=== PATIENT | male | born 1965 | race Caucasian/White ===

== ENCOUNTER 2016-09-02 17:15 | Emergency (ER) | payer MEDICAID ==
[~2016-09-02] VITALS: Ht 188 cm; Wt 96.1 kg
[~2016-09-02 17:15] MED LIST: ACET325T14 PO; CLIN300C93 PO; LACT1CAP24 PO; WELLBUTRIN
[2016-09-02] MEDS ORDERED: SODIUM CHLORIDE 0.9% 1,000 ML IV ONE (17:48)
[2016-09-02] MEDS ORDERED: SODIUM CHLORIDE 0.9% 1,000ML IVBOLUS ONE (18:00)
[2016-09-02] MEDS ORDERED: ONDANSETRON 2MG/ML, 2ML IVPush ONE (18:00)
[2016-09-02] MEDS ORDERED: MORPHINE SULFATE 4 MG/ML, 1ML IVPush PRN (18:00)
[2016-09-02 18:24] LABS: BLOOD UREA NITROGEN 13 mg/dL (7-18)
[2016-09-02] MEDS ORDERED: MORPHINE SULFATE 4 MG/ML, 1ML ONE (19:12)
[2016-09-02] MEDS ORDERED: ONDANSETRON 2MG/ML, 2ML ONE (19:12)
[2016-09-02] MEDS ORDERED: CEFTAROLINE 600 MG in SODIUM CHLORIDE 0.9% 100 ML IV ONE (20:00)
[2016-09-02 23:06] VITALS: BP 119/79
== END 2016-09-02 23:27 | disposition home or self-care (01) ==
LOC: ED 20:29
DX: L03.115 Cellulitis of right lower limb (principal); I10 Essential (primary) hypertension; F17.200 Nicotine dependence, unspecified, uncomplicated; F15.10 Other stimulant abuse, uncomplicated
CPT/HCPCS: 36415; 80048; 82040; 83605; 84145; 85025; 87040; 93971; 96361; 96365; 96366; 96375; 99285; J0712; J2405; J7030

== ENCOUNTER 2016-09-07 19:11 | Emergency (ER) | payer MEDICAID ==
[~2016-09-07] VITALS: Ht 188 cm; Wt 93.9 kg
[2016-09-07] MEDS ORDERED: CEFTRIAXONE 1,000 MG in SODIUM CHLORIDE 0.9% 50 ML IVPB ONE (20:00)
[2016-09-07] MEDS ORDERED: SODIUM CHLORIDE FLUSH 10ML SYR IVF ONE (20:00)
[2016-09-07 20:19] LABS: BLOOD UREA NITROGEN 28 mg/dL (7-18)
[2016-09-07 20:47] VITALS: BP 133/90
== END 2016-09-07 20:56 | disposition home or self-care (01) ==
LOC: ED 20:53
DX: L03.115 Cellulitis of right lower limb (principal); I10 Essential (primary) hypertension; F17.210 Nicotine dependence, cigarettes, uncomplicated
CPT/HCPCS: 36415; 80048; 82040; 85025; 96365; 99284; J0696

== ENCOUNTER 2016-11-17 13:31 | Inpatient (IN) | payer MEDICAID ==
[~2016-11-17] VITALS: Ht 188 cm; Wt 97.0 kg
[2016-11-17] MEDS ORDERED: MORPHINE SULFATE 4 MG/ML, 1ML IVPush PRN ×2 (14:00→18:30)
[2016-11-17] MEDS ORDERED: SODIUM CHLORIDE 0.9% 1,000ML IVBOLUS ONE (14:00)
[2016-11-17] MEDS ORDERED: ONDANSETRON 2MG/ML, 2ML IVPush ONE (14:00)
[2016-11-17 14:56] LABS: HEMATOCRIT 42.6 % (39.2-51.8); HEMOGLOBIN 14.4 g/dL (13.7-18.0); WHITE BLOOD COUNT 9.8 x10^3/uL (3.4-10)
[2016-11-17 14:59] LABS: ASPARTATE AMINO TRANSFERASE 12 U/L (15-37); BLOOD UREA NITROGEN 20 mg/dL (7-18)
[2016-11-17] MEDS ORDERED: SODIUM CHLORIDE 0.9% 1,000 ML IV ONE (18:23)
[2016-11-17] MEDS ORDERED: CEFTAROLINE 600 MG in SODIUM CHLORIDE 0.9% 100 ML IV ONE (18:30)
[2016-11-17] MEDS ORDERED: ONDANSETRON 2MG/ML, 2ML IVPush PRN ×2 (18:30→19:00)
[2016-11-17] MEDS ORDERED: MORPHINE SULFATE 4 MG/ML, 1ML ONE (18:38)
[2016-11-17] MEDS ORDERED: ONDANSETRON 2MG/ML, 2ML ONE (18:39)
[2016-11-17] MEDS ORDERED: morphine SULFATE 10 MG/ML, 1ML IVPush PRN (19:00)
[2016-11-17] MEDS ORDERED: POLYETHYLENE GLYCOL 17 GM PACKET PO PRN (19:00)
[2016-11-17] MEDS ORDERED: ZOLPIDEM 5MG TABLET PO PRN (19:00)
[2016-11-17] MEDS ORDERED: OXYcodone IR 5MG TABLET PO PRN (19:00)
[2016-11-17] MEDS ORDERED: BISACODYL 10 MG SUPP PR PRN (19:00)
[2016-11-17] MEDS ORDERED: DOCUSATE 100 MG CAPSULE PO PRN (19:00)
[2016-11-17] MEDS ORDERED: LORazepam 1MG TABLET PO PRN (19:00)
[2016-11-17] MEDS ORDERED: ACETAMINOPHEN 325 MG TABLET PO PRN (19:00)
[2016-11-17] MEDS ORDERED: NS + 20MEQ KCL 1,000 ML IV SCH (20:47)
[2016-11-17] MEDS ORDERED: PHARMACOKINETIC MONITORING MC PRN (21:00)
[2016-11-17] MEDS ORDERED: PHARMACOKINETIC CONSULTATION MC ONE (21:00)
[2016-11-17] MEDS: ENOXAPARIN 40 MG/0.4 ML SQ SCH ×2 (21:00→21:39)
[2016-11-17 21:13] VITALS: BP 113/74
[2016-11-17] MEDS: NICOTINE 14MG/24 HR PATCH.TD24 TD SCH (21:39)
[2016-11-17] MEDS: VANCOMYCIN 2,000 MG in SODIUM CHLORIDE 0.9% 500 ML IV SCH (21:39)
[2016-11-18 01:14] VITALS: BP 145/87
[2016-11-18] MEDS: CEFTRIAXONE PMX 1GM/50ML 50 ML IV SCH ×2 (05:33→18:01)
[2016-11-18] MEDS ORDERED: VANCOMYCIN PER PHARMACY MC PRN (06:00)
[2016-11-18 06:21] LABS: BLOOD UREA NITROGEN 14 mg/dL (7-18)
[2016-11-18 07:20] LABS: HEMATOCRIT 39.7 % (39.2-51.8); HEMOGLOBIN 13.3 g/dL (13.7-18.0); WHITE BLOOD COUNT 8.3 x10^3/uL (3.4-10)
[2016-11-18 07:37] VITALS: BP 131/84
[2016-11-18] MEDS: VANCOMYCIN 2,000 MG in SODIUM CHLORIDE 0.9% 500 ML IV SCH ×2 (11:36→23:49)
[2016-11-18 17:56] VITALS: BP 143/81
[2016-11-18 18:27] VITALS: BP 147/89
[2016-11-18] MEDS: NICOTINE 14MG/24 HR PATCH.TD24 TD SCH (21:00)
[2016-11-18] MEDS: ENOXAPARIN 40 MG/0.4 ML SQ SCH (21:00)
[2016-11-19 01:06] VITALS: BP 136/84
[2016-11-19] MEDS: CEFTRIAXONE PMX 1GM/50ML 50 ML IV SCH ×2 (06:08→17:56)
[2016-11-19 08:44] VITALS: BP 145/87
[2016-11-19] MEDS: VANCOMYCIN 2,000 MG in SODIUM CHLORIDE 0.9% 500 ML IV SCH ×2 (11:26→23:54)
[2016-11-19 13:49] VITALS: BP 130/83
[2016-11-19] MEDS ORDERED: GADOBUTROL 10 MMOL/10 ML PFS ONE (16:18)
[2016-11-19 19:31] VITALS: BP 134/83
[2016-11-19] MEDS: NICOTINE 14MG/24 HR PATCH.TD24 TD SCH (21:00)
[2016-11-19] MEDS: ENOXAPARIN 40 MG/0.4 ML SQ SCH (21:00)
[2016-11-20 02:20] VITALS: BP 138/85
[2016-11-20 05:09] LABS: HEMOGLOBIN 13.9 g/dL (13.7-18.0); WHITE BLOOD COUNT 6.5 x10^3/uL (3.4-10)
[2016-11-20 05:19] LABS: BLOOD UREA NITROGEN 13 mg/dL (7-18)
[2016-11-20] MEDS: CEFTRIAXONE PMX 1GM/50ML 50 ML IV SCH ×2 (06:28→18:13)
[2016-11-20 07:03] VITALS: BP 136/76
[2016-11-20 12:35] VITALS: BP 153/90
[2016-11-20] MEDS: VANCOMYCIN 2,000 MG in SODIUM CHLORIDE 0.9% 500 ML IV SCH (13:29)
[2016-11-20 19:47] VITALS: BP 132/87
[2016-11-20] MEDS: ENOXAPARIN 40 MG/0.4 ML SQ SCH (20:50)
[2016-11-20] MEDS: NICOTINE 14MG/24 HR PATCH.TD24 TD SCH (20:51)
[2016-11-21 02:02] VITALS: BP 142/92
[2016-11-21] MEDS: VANCOMYCIN 2,000 MG in SODIUM CHLORIDE 0.9% 500 ML IV SCH (02:04)
[2016-11-21] MEDS: CEFTRIAXONE PMX 1GM/50ML 50 ML IV SCH (06:05)
[2016-11-21 07:15] VITALS: BP 146/97
[2016-11-21] MEDS ORDERED: AMOX1TAB64 PO (09:35)
[2016-11-21 12:25] VITALS: BP 134/85
== END 2016-11-21 14:37 | disposition home or self-care (01) | DRG 603 ==
LOC: ED 18:22 → EDIP 18:23 → SUATTDRO 18:29 → ED 18:34 → 3NE 20:46
DX: L03.115 Cellulitis of right lower limb (principal); E44.1 Mild protein-calorie malnutrition; F15.10 Other stimulant abuse, uncomplicated; D64.9 Anemia, unspecified; S80.811A Abrasion, right lower leg, initial encounter; R79.89 Other specified abnormal findings of blood chemistry; F17.210 Nicotine dependence, cigarettes, uncomplicated; B95.61 Methicillin susceptible Staphylococcus aureus infection as the cause of diseases classified elsewhere; I10 Essential (primary) hypertension; Z68.27 Body mass index [BMI] 27.0-27.9, adult; Z83.2 Family history of diseases of the blood and blood-forming organs and certain disorders involving the immune mechanism
CPT/HCPCS: 36415; 80048; 80053; 80202; 85025; 85651; 86140; 87040; 87070; 87077; 87147; 87186; 87205; 93922; 93970; 96374; 96375; A9585; J0696; J0712; J1650; J2405; J3370; J3480; J7030; J7040

== ENCOUNTER 2017-01-26 22:08 | Emergency (ER) | payer SELFPAY ==
[~2017-01-26] VITALS: Ht 188 cm; Wt 98.2 kg
[~2017-01-26 22:08] MED LIST changes: +AMOX1TAB64 PO; +CLIN300C8 PO; -CLIN300C93 PO
[2017-01-27 01:12] VITALS: BP 115/73
== END 2017-01-27 02:02 | disposition home or self-care (01) ==
LOC: ED 23:59
DX: M79.662 Pain in left lower leg (principal); M79.661 Pain in right lower leg; I10 Essential (primary) hypertension; F17.200 Nicotine dependence, unspecified, uncomplicated
CPT/HCPCS: 99284

== ENCOUNTER 2018-05-01 00:07 | Emergency (ER) | payer MEDICAID ==
[~2018-05-01] VITALS: Ht 188 cm; Wt 109.9 kg
[2018-05-01] MEDS ORDERED: KETOROLAC 30 MG/1 ML IVPush ONE (00:30)
[2018-05-01] MEDS ORDERED: SODIUM CHLORIDE FLUSH 10ML SYR IVF ONE (00:30)
[2018-05-01 00:43] LABS: BASOPHILS # (AUTO) 0.02 x10^3/uL (0-0.1); BASOPHILS % (AUTO) 0 % (0-1); EOSINOPHILS # (AUTO) 0.24 x10^3/uL (0-0.4); EOSINOPHILS % (AUTO) 4 % (1-7); LYMPHOCYTES % (AUTO) 28 % (22-44); MD NO; MEAN CORPUSCULAR HEMOGLOBIN 29.9 pg (27.5-34.5); MEAN CORPUSCULAR VOLUME 87.8 fL (81-97); MONOCYTES # (AUTO) 0.44 x10^3/uL (0.2-0.8); MONOCYTES % (AUTO) 7 % (2-9); NEUTROPHILS # (AUTO) 4.15 x10^3/uL (1.8-6.8); NEUTROPHILS % (AUTO) 62 % (42-75); PLATELET COUNT 266 x10^3/uL (130-400); RED BLOOD COUNT 5.01 x10^6/uL (4.38-5.82)
[2018-05-01 00:53] LABS: ALANINE AMINOTRANSFERASE 24 U/L (12-78); ANION GAP 6 mmol/L (5-15); CALCIUM 8.6 mg/dL (8.5-10.1); CHLORIDE 106 mmol/L (98-107)
[2018-05-01 00:55] LABS: ALKALINE PHOSPHATASE 89 U/L (45-117); BILIRUBIN,TOTAL 0.2 mg/dL (0.2-1.0); TOTAL PROTEIN 7.2 g/dL (6.4-8.2)
[2018-05-01] MEDS ORDERED: KETOROLAC 30 MG/1 ML ONE (01:14)
--- NOTE | 2018-05-01 01:38 | NUR ---
PT MEDICATED PER MAR. POC DISCUSSED. PT DENIES FURTHER NEEDS AT THIS TIME. CALL LIGHT ON LAP.
[2018-05-01 01:44] LABS: HCT (SEDRATE) 42.9 % (39.2-51.8)
--- NOTE | 2018-05-01 03:03 | NUR ---
UPON GIVING PT DC INSTRUCTIONS PT DEMANDING IV ANTIBIOTICS. POC DISCUSSED. PT GIVEN MEDICATION ASSISTANCE FORM. WOUND CARE FORM FAXED TO WOUND CLINIC. PT REQUESTING TO SPEEK TO PROVIDER AGAIN. PA AT BEDSIDE DISCUSSING POC. PT NOW AGREES TO DC.
[2018-05-01 03:04] VITALS: BP 119/74
== END 2018-05-01 03:06 | disposition home or self-care (01) ==
LOC: ED 00:48
DX: L03.115 Cellulitis of right lower limb (principal); I10 Essential (primary) hypertension
CPT/HCPCS: 36415; 73590; 73610; 80053; 85025; 85651; 86140; 87040; 93971; 96374; 99284; J1885

== ENCOUNTER 2019-02-06 20:38 | Emergency (ER) | payer MEDICAID ==
[~2019-02-06] VITALS: Ht 188 cm; Wt 109.4 kg
[~2019-02-06 20:38] MED LIST changes: +AMOX1TAB12 PO; +DOXY100C2 PO; +DOXY100T51 PO
--- NOTE | 2019-02-06 21:03 | NUR ---
PT STATES HE SCRATCHED RT ANKLE "ALL OVER" AND "IT MADE THE INFECTION WORSE". STATES HE WAS SEEN AT [facility] YESTERDAY, DRESSING APPLIED, WAS TO GET ANTIBIOTIC SCRIPT. UNCLEAR IF PT DIDN'T BUSINESS RISK ANALYST SCRIPT. PT UNDER THE IMPRESSION SCRIPT WAS TO BE CALLED IN. DRESSING: TELFA PADS W/ SLIGHT AMOUNT SEROSANGUINOUS DRAINAGE AND COBAN. DRESSING DIRTY ON BOTTOM OF FOOT. COBAN DIFFICULT TO UNWRAP, APPEARS TO HAVE BEEN ON LEG LONGER THAN ONE DAY. PT HAS ONE CRUTCH TO WALK WITH. C/O THROBBING PAIN IN FOOT. REDNESS, SCABS OPEN WOUNDS TO RT LOWER LEG, MID-CALF TO TOES. REDNESS TO LT LOWER LEG MID-CALF TO ANKLE; SKIN INTACT.
--- NOTE | 2019-02-06 21:11 | NUR ---
DR BARRAZA BS FOR EXAM
[2019-02-06] MEDS ORDERED: SULF-169 PO (21:16)
[2019-02-06] MEDS ORDERED: NAPROXEN (21:21)
[2019-02-06] MEDS ORDERED: FLUO20CA19 PO (21:21)
--- NOTE | 2019-02-06 21:22 | NUR ---
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
[2019-02-06] MEDS ORDERED: CLINDAMYCIN 150 MG CAPSULE PO ONE (21:30)
[2019-02-06] MEDS ORDERED: CLINDAMYCIN 300 MG CAPSULE ONE (21:35)
--- NOTE | 2019-02-06 21:38 | NUR ---
NOTIFIED DR BARRAZA NOTIFIED ED DOESN'T STOCK CLEOCIN 450MG, DOES STOCK 300 CAP. VO: CHANGE CLEOCIN TO 300MG PO.
--- NOTE | 2019-02-06 21:40 | NUR ---
CLEOCIN 300MG PO GIVEN. [facility] NOT ACCEPTING SCAN
[2019-02-06 22:04] VITALS: BP 119/94
--- NOTE | 2019-02-06 22:04 | NUR ---
WOUND CARE PER JOSE ROBERTS TECH.
== END 2019-02-06 22:31 | disposition home or self-care (01) ==
LOC: ED 21:34
DX: L03.115 Cellulitis of right lower limb (principal); F17.200 Nicotine dependence, unspecified, uncomplicated; I10 Essential (primary) hypertension
CPT/HCPCS: 99283

== ENCOUNTER 2019-05-23 18:55 | Emergency (ER) | payer MEDICAID ==
[~2019-05-23] VITALS: Ht 190.5 cm; Wt 107.2 kg
[~2019-05-23 18:55] MED LIST changes: +FLUO20CA19 PO; +NAPROXEN; +SULF-169 PO
[2019-05-23 19:21] VITALS: BP 156/117
[2019-05-23] MEDS ORDERED: DIPH,PERTUSS(ACELL),TET VAC/PF 0.5 ML IM-VACC ONE ×2 (19:30→19:52)
[2019-05-23] MEDS ORDERED: LIDOCAINE-MPF 1%, 5ML INFIL ONE (19:30)
[2019-05-23] MEDS ORDERED: LIDOCAINE-MPF 1%, 2ML ONE (19:52)
[2019-05-23] MEDS ORDERED: CEPHALEXIN 500 MG CAPSULE PO ONE (20:30)
[2019-05-23] MEDS ORDERED: SULFAMETH./TRIMETHOPRIM DS 800MG/160MG TABLET PO ONE (20:30)
[2019-05-23] MEDS ORDERED: SULFAMETH./TRIMETHOPRIM DS 800MG/160MG TABLET ONE (20:33)
[2019-05-23] MEDS ORDERED: CEPHALEXIN 500 MG CAPSULE ONE (20:33)
--- NOTE | 2019-05-23 20:41 | NUR ---
PT MEDICATED PER [facility]. 5 RIGHTS ADDRESSED. PT REFUSED TDAP
--- NOTE | 2019-05-23 21:24 | NUR ---
Patient/Caregiver given discharge instructions and they have confirmed that they understand the instructions. Patient ambulatory with steady gait.
== END 2019-05-23 21:30 | disposition home or self-care (01) ==
LOC: ED 20:50
DX: L02.511 Cutaneous abscess of right hand (principal); L03.211 Cellulitis of face; L03.011 Cellulitis of right finger
CPT/HCPCS: 26010; 99283

== ENCOUNTER 2019-08-31 03:17 | Emergency (ER) | payer MEDICAID ==
[~2019-08-31] VITALS: Ht 188 cm; Wt 110.9 kg
[2019-08-31 03:19] VITALS: BP 99/67
[2019-08-31] MEDS ORDERED: HYDROcodone/APAP 5/325 TABLET ONE (03:42)
[2019-08-31] MEDS ORDERED: HYDROcodone/APAP 5/325 TABLET PO ONE (04:00)
[2019-08-31] MEDS ORDERED: NEOSPORIN OINT. PKT 1 PACKET ONE (04:10)
--- NOTE | 2019-08-31 04:16 | NUR ---
WOUND DRESSED WITH BACITRACIN AND WRAPPED WITH GAUZE AND COBAN.
[2019-08-31] MEDS ORDERED: BACITRACIN OINT 500U/GM, 28GM TP ONE (04:30)
== END 2019-08-31 04:20 | disposition home or self-care (01) ==
LOC: ED 04:00
DX: I83.223 Varicose veins of left lower extremity with both ulcer of ankle and inflammation (principal); L97.329 Non-pressure chronic ulcer of left ankle with unspecified severity; L03.115 Cellulitis of right lower limb; I10 Essential (primary) hypertension; F17.210 Nicotine dependence, cigarettes, uncomplicated
CPT/HCPCS: 99283; 99406